=== PATIENT | male | born 1980 | race Caucasian/White ===

== ENCOUNTER → 2023-02-01 | Outpatient (CLI) | payer OTHER ==
[~2023-02-01] MED LIST: (None)20 M1 PO; ALBIPROI INH; ALBU.083IS IH; ALBU90I INH; ALBU90OI; ALBU90OI INH; ALBU90OI6 INH; ALBU90OI61 INH; AMOX500 PO; AZIT250 PO; BENTYL20 MG PO; BENZ100A PO; BUDE6HFA INH; CEFU500 PO; CIPR500 PO; CLAR500 PO; CLIN150 PO; CLIN300 PO; CLON1 PO; CLOT1TC TOP; CODGUAEL PO; CRUTCH4 USE; CYCL10 PO; Cleocin HCl150 MG PO; Cleocin HCl300 MG PO; DIAZ5; DIAZ5 PO; DOXY100 PO; ERYSTE250 PO; ERYT500 PO; FAMO40 PO; FLUSAL1005 INH; FLUSAL5005 INH; HYDACE10B PO; HYDACE5 PO; HYDGUAL120 PO; HYDHOMSY PO; IBU; IBUP200; IBUP600 PO; IBUP800 PO; LEVFLO500 PO; LORA1 PO; LORA2 PO; Mucinex600 MG PO; NAPR500 PO; NAPR550 PO; Naprosyn500 MG PO; OXYACE5T PO; PHENERGAN25 MG RC; PRED10 PO; PRED20 PO; PROM25 PO; Prednisone20 MG PO; RANI150 PO; RXALBOI INH; RXCLIN PO; RXHYDACE PO; RXNAPNA550 PO; RXOXYACE PO; RXTRAM50 PO; SALM50IP; SUCR1 PO; SULF10OPSA OU; SULTRIDS PO; TIOT18; TIOT18 INH; TRAM50 PO; TRAZ100 PO; Ventolin Soln3 ML INH; [UNRECOGNIZED DRUG - OTHER]
[2023-02-09 17:08] LABS: COTININE 15.5 ng/mL (.); NICOTINE <10.0 ng/mL (.)
== END ==
LOC: LAB SHORT 16:36 → LAB 16:36
PROVIDERS: Surgery
DX: Z72.0 Tobacco use (principal)
CPT/HCPCS: G0480

== ENCOUNTER 2023-03-24 08:05 | Day surgery (SDC) | payer OTHER ==
[2023-03-24] VITALS (17 sets, daily range): BP systolic 118–137; BP diastolic 68–98
[~2023-03-24] VITALS: Ht 182 cm; Wt 98.8 kg
--- NOTE | 2023-03-24 09:43 | NUR ---
History, Chart, Medications and Allergies reviewed before start of procedure. Ambulatory in Day Surgery. Pre-Op teaching done. Pt verbalizes understanding. Patient confirms NPO status and agrees with scheduled surgery. Patient reports completing Chlorhexadine shower X2 prior to admission to hospital. Surgical site prepped with 2% Chlorhexidine cloth wipe. Patient States Post-Procedure ride home has been arranged.
--- NOTE | 2023-03-24 14:00 | NUR ---
Discharge instructions reviewed with patient. Patient verbalizes understanding. Copy given to patient to take home. Discharged via wheelchair to private car for ride home.
== END 2023-03-24 14:05 | disposition home or self-care (01) ==
LOC: ORSCMMR 08:05 → ORD 09:15 → ORSCMMR 14:05
PROVIDERS: Surgery
PROC: 0YU50JZ Supplement Right Inguinal Region with Synthetic Substitute, Open Approach (ICD-10-PCS; principal; 2023-03-24 09:15)
DX: K40.90 Unilateral inguinal hernia, without obstruction or gangrene, not specified as recurrent (principal); J44.9 Chronic obstructive pulmonary disease, unspecified; F17.210 Nicotine dependence, cigarettes, uncomplicated; F41.9 Anxiety disorder, unspecified; F31.9 Bipolar disorder, unspecified; Z79.899 Other long term (current) drug therapy
CPT/HCPCS: C1781; J0690; J1100; J1170; J1885; J2371; J2405; J2704; J3010; J7120

== ENCOUNTER → 2023-07-28 | Outpatient (CLI) | payer OTHER ==
[2023-08-02 18:13] LABS: 3-OH-COTININE, URN, QUANT <50 ng/mL; COTININE, URN, QUANT <15 ng/mL; NICOTINE, URN, QUANT 26 ng/mL
== END | disposition home or self-care (01) ==
LOC: LAB 15:03 → LAB SHORT 15:03
PROVIDERS: Surgery
DX: Z72.0 Tobacco use (principal)
CPT/HCPCS: G0480

== ENCOUNTER 2024-12-25 08:14 | Day surgery (SDC) | payer OTHER ==
[~2024-12-25] VITALS: Ht 180.3 cm; Wt 98.6 kg
[2024-12-25] VITALS (13 sets, daily range): BP systolic 93–126; BP diastolic 67–83
[~2024-12-25 08:14] MED LIST changes: +CeFAZolin Sodium 2,000 MG in NS 100 ML IV SCH; +Chlorhexidine Mouth Care 15 ML UDC MT SCH; +IBUP200 PO; +Ropivacaine 0.5% HCl/Pf 123.125 MG,EPINEPHrine HCL 0.25 MG,Ketorolac Tromethamine 15 MG... INFIL SCH; +TIZA4 PO; +Tranexamic Acid 100 ML IV SCH
[2024-12-25] MEDS ORDERED: Morphine Sulfate 4 MG/1 ML Injection IV PRN (09:05)
[2024-12-25] MEDS ORDERED: Ondansetron HCl 2 MG / ML 2ML Vial IV PRN ×2 (09:05→10:50)
[2024-12-25] MEDS ORDERED: HYDROmorphone HCl/Pf 1MG SYR IV PRN ×2 (09:10→10:55)
[2024-12-25] MEDS ORDERED: Metoclopramide HCl 5MG / ML 2ML Vial IV PRN ×2 (09:10→10:50)
[2024-12-25] MEDS ORDERED: ePHEDrine Sulfate 50 MG/ML 1ML Injection IV PRN (09:10)
[2024-12-25] MEDS ORDERED: Labetalol HCL 5 MG/ML 4ML Injection (Single Dose) IV PRN (09:10)
[2024-12-25] MEDS ORDERED: FentaNYL Citrate 50 MCG/ML 2 ML Injection IV PRN ×2 (09:10)
[2024-12-25] MEDS ORDERED: Ipratropium/Albuterol SulF 2.5-0.5MG/3 ML Amp INH ONE (09:20)
[2024-12-25] MEDS ORDERED: Magnesium Sulfate 500 MG / ML 2ML Vial ONE (10:01)
[2024-12-25] MEDS ORDERED: HYDROmorphone HCl/Pf 1MG SYR ONE ×2 (10:10→12:07)
[2024-12-25] MEDS ORDERED: Midazolam HCl 1MG / ML 2ML Vial ONE ×2 (10:10→10:43)
--- NOTE | 2024-12-25 10:12 | NUR ---
History, Chart, Medications and Allergies reviewed before start of procedure. Patient up to Ambulate independently. Gait steady. Pre-Op teaching done. Pt verbalizes understanding. Patient confirms NPO status and agrees with scheduled surgery. Patient reports completing Chlorhexadine shower X2 prior to admission to hospital. Surgical site prepped with 2% Chlorhexidine cloth wipe. Patient States Post-Procedure ride home has been arranged.
[2024-12-25] MEDS ORDERED: Albuterol HFA200 ACT/6.7 GM INH INH PRN (10:50)
[2024-12-25] MEDS ORDERED: Prochlorperazine Edisylate 10 mg Vial IV PRN (10:50)
[2024-12-25] MEDS ORDERED: Magnesium Hydroxide Conc 10 ML UDC PO PRN (10:55)
[2024-12-25] MEDS ORDERED: Ketorolac Tromethamine 15mg Vial IV SCH (12:00)
--- NOTE | 2024-12-25 13:21 | NUR ---
PT ARRIVED TO PACU VIA BED AT 1237. AFTER DR MEDELLIN LEFT PACU PT AWAKENS AND BECOME AGITATED. STARTED PULLING AT CORDS/TRYING TO CRAWL OUT OF BED/SWEARING. TRIED ORIENTING TO PLACE & PROCEDURE, BUT HIS BEHAVIOR CONTINUED. I REMAINED AT BEDSIDE FOR HIS SAFETY AND ALLOWED HIM TO VENT HIS ANGER. AFTER HE CALMED I APPLIED WARM BLANKETS LAID HIM BACK WHILE HE CLOSED HIS EYES STARTED TO RELAX. I GAVE REPORT TO LEWIS GRAF RN WHO TOOK OVER PT CARE.
[2024-12-25] MEDS ORDERED: Ketorolac Tromethamine 30mg Vial ONE (13:38)
--- NOTE | 2024-12-25 14:27 | NUR ---
ARRIVAL TO UNIT S/P R MASHA, ARRIVAL TO UNIT AT 1418. SURGICAL SITE IS C/D/I. VSS ON ROOM AIR. PEDAL PULSES PALPABLE.
[2024-12-25] MEDS ORDERED: ACET500 PO (16:26)
[2024-12-25] MEDS ORDERED: ASPI81CH PO (16:27)
[2024-12-25] MEDS ORDERED: OXYC5 PO (16:27)
[2024-12-25] MEDS ORDERED: CeFAZolin Sodium 2,000 MG in NS 100 ML IV SCH (18:00)
--- NOTE | 2024-12-25 18:04 | NUR ---
DISCHARGE NOTE S/P R MASHA PT TOLERATING INTAKE. ABLE TO VOID. AMBULATES SBA W/ FWW AND GB. NO N/V. SURGICAL SITE DRESSING C/D/I. PT WORKED W/ PHYSICAL THERAPY. PT NONADHERENT TO RN EDUCATION REGARDING WALKER USE, POST OP RESTRICTIONS, AND SAFETY. ESCORTED OUT VIA WC.
== END 2024-12-25 18:11 | disposition home or self-care (01) ==
LOC: ORSCMMR 08:14 → SURS 14:12 → ORSCMMR 18:11
PROVIDERS: Orthopaedic Surgery
PROC: 0SR90JA Replacement of Right Hip Joint with Synthetic Substitute, Uncemented, Open Approach (ICD-10-PCS; principal; 2024-12-25 09:30)
DX: M16.11 Unilateral primary osteoarthritis, right hip (principal); J44.89 Other specified chronic obstructive pulmonary disease; J45.909 Unspecified asthma, uncomplicated; F17.210 Nicotine dependence, cigarettes, uncomplicated; Z79.899 Other long term (current) drug therapy
CPT/HCPCS: 72170; 97116; 97161; 97530; A9270; C1776; J0165; J0166; J0690; J0735; J1171; J1885; J2250; J2704; J2795; J3475; J7120